=== PATIENT | female | born 1995 | race Caucasian/White ===

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

== ENCOUNTER 2017-10-22 10:26 | Emergency (ER) | payer OTHER ==
--- NOTE | 2017-10-25 08:25 | UC ---
Discharge - Sign-Out/Discharge Documenting (check all that apply): Post-Discharge Follow Up All imaging exams completed and their final reports reviewed: No Studies - Discharge Plan Disposition: LEFT WITHOUT BEING SEEN Referrals: Non Staff,Doctor [Primary Care Provider] - - Billing Disposition and Condition Disposition: Left Without Being Seen
== END 2017-10-22 11:10 | disposition left against medical advice (07) ==
LOC: UCCORT 10:26
DX: J02.9 Acute pharyngitis, unspecified (principal); R05 Cough; Z53.21 Procedure and treatment not carried out due to patient leaving prior to being seen by health care provider